=== PATIENT | male | born 1995 | race Two or more races ===

== ENCOUNTER 2018-10-19 18:47 | Emergency (ER) | payer OTHER ==
[~2018-10-19] VITALS: Ht 170.2 cm; Wt 89.7 kg
[2018-10-19] MEDS ORDERED: DIAZEPAM 5 MG TABLET PO ONE (21:00)
[2018-10-19] MEDS ORDERED: HYDROcodone/APAP 5/325 TABLET PO ONE (21:00)
[2018-10-19] MEDS ORDERED: DIAZEPAM 5 MG TABLET ONE (22:04)
[2018-10-19] MEDS ORDERED: HYDROcodone/APAP 5/325 TABLET ONE (22:05)
--- NOTE | 2018-10-19 22:08 | NUR ---
C/O BACK PAIN R/T EXPLOSION AT [facility] TODAY. NO PAIN MEDS TAKEN. FINE PETECHIA RASH TO BACK. DENIES DYSPNEA. C/O "ANNOYING" FEELING TO MID-CHEST.
[2018-10-19] MEDS ORDERED: ONDANSETRON ODT 4 MG ONE (22:17)
--- NOTE | 2018-10-19 22:25 | NUR ---
PT AMBULATORY TO & FROM [facility] W/ ASSIST FROM HIS DAD. VOIDED URINE SPECIMEN PROVIDED.
[2018-10-19] MEDS ORDERED: ONDANSETRON ODT 4 MG PO ONE (22:30)
[2018-10-19 22:45] LABS: MICROSCOPIC NOT IND
[2018-10-19 22:50] LABS: CULTURE INDICATED? NO
[2018-10-19 23:35] VITALS: BP 116/79
== END 2018-10-19 23:37 | disposition home or self-care (01) ==
LOC: ED 21:41
DX: S39.012A Strain of muscle, fascia and tendon of lower back, initial encounter (principal); S30.0XXA Contusion of lower back and pelvis, initial encounter; X58.XXXA Exposure to other specified factors, initial encounter; Y93.89 Activity, other specified; Y92.89 Other specified places as the place of occurrence of the external cause; Y99.8 Other external cause status
CPT/HCPCS: 71046; 72072; 72110; 81003; 99284; Q0162

== ENCOUNTER 2019-03-31 14:29 | Emergency (ER) | payer OTHER ==
[~2019-03-31] VITALS: Ht 170.2 cm; Wt 90.6 kg
--- NOTE | 2019-03-31 15:33 | NUR ---
CONTINUES TO BE ANXIOUS AND HYPER VENTILATING ERP AWARE
--- NOTE | 2019-03-31 15:53 | NUR ---
GIVEN DC INSTRUCTION PT WAS ABLE TO TAKE DEEP BREATHE AND OUT HR BACK DOWN UP TO 90'S PT WAS YAWNING AND RELAXING PT WAS ABLE TO VERBALIZED UNDERSTANDING ANTIANXIETY CONTOLS PROPERLY GIRLFRIEND AT BED SIDE UNDERSTOOD
[2019-03-31 15:55] VITALS: BP 122/86
== END 2019-03-31 15:58 | disposition home or self-care (01) ==
LOC: ED 15:57
DX: F41.1 Generalized anxiety disorder (principal); F32.9 Major depressive disorder, single episode, unspecified
CPT/HCPCS: 93005; 99283

== ENCOUNTER 2019-03-31 21:26 | Emergency (ER) | payer OTHER ==
[~2019-03-31] VITALS: Ht 170.2 cm; Wt 89.9 kg
--- NOTE | 2019-03-31 21:48 | NUR ---
Patient states he was in the ED earlier today for a panic attack. He was prescribed xanax which helped him. He stated he went to sleep after his visit and when he woke up, his heart was racing again and he wasn't able to calm himself. Patient uses marijuana recreationally which he used this morning. Patient states he went to the [facility] last night and drank copious amount of alcohol.
[2019-03-31] MEDS ORDERED: ONDANSETRON ODT 4 MG ONE (21:54)
[2019-03-31] MEDS ORDERED: ONDANSETRON ODT 4 MG PO ONE (22:00)
[2019-03-31 22:24] LABS: BASOPHILS # (AUTO) 0.04 x10^3/uL (0-0.1); BASOPHILS % (AUTO) 0 % (0-1); EOSINOPHILS # (AUTO) 0.09 x10^3/uL (0-0.4); EOSINOPHILS % (AUTO) 1 % (1-7); LYMPHOCYTES # (AUTO) 2.56 x10^3/uL (1-3.4); LYMPHOCYTES % (AUTO) 24 % (22-44); MD NO; MEAN CORPUSCULAR HGB CONC 33.8 g/dL (33.2-36.2); MEAN CORPUSCULAR VOLUME 88.6 fL (81-97); MEAN PLATELET VOLUME 9.5 fL (7.4-10.4); MONOCYTES # (AUTO) 0.82 x10^3/uL (0.2-0.8); MONOCYTES % (AUTO) 8 % (2-9); NEUTROPHILS # (AUTO) 7.02 x10^3/uL (1.8-6.8); NEUTROPHILS % (AUTO) 67 % (42-75); PLATELET COUNT 235 x10^3/uL (130-400); RED BLOOD COUNT 5.18 x10^6/uL (4.38-5.82); RED CELL DISTRIBUTION WIDTH 12.7 % (9.4-14.8)
[2019-03-31 22:36] VITALS: BP 130/77
[2019-03-31 22:36] LABS: ANION GAP 8 mmol/L (5-15); CALCIUM 9.3 mg/dL (8.5-10.1); CHLORIDE 106 mmol/L (98-107); CREATININE 0.87 mg/dL (0.7-1.3)
[2019-03-31 23:21] LABS: AMPHETAMINE SCREEN, URINE Negative (Negative); BARBITURATE SCREEN, URINE Negative (Negative); BENZODIAZEPINE SCREEN, URINE Positive (Negative); CANNABINOID SCREEN, URINE Positive (Negative); COCAINE SCREEN, URINE Negative (Negative); METHADONE SCREEN, URINE Negative (Negative); OPIATE SCREEN, URINE Negative (Negative)
== END 2019-03-31 23:53 | disposition home or self-care (01) ==
LOC: ED 22:11
DX: R11.0 Nausea (principal); R00.2 Palpitations; F41.1 Generalized anxiety disorder; F12.10 Cannabis abuse, uncomplicated
CPT/HCPCS: 36415; 80048; 80307; 84443; 85025; 93005; 99284; Q0162; Q0177